=== PATIENT | female | born 1930 | race Caucasian/White ===

== ENCOUNTER → 2017-03-21 | Outpatient (CLI) | payer OTHER ==
[~2017-03-21] VITALS: Ht 147.3 cm; Wt 37.2 kg
[~2017-03-21] MED LIST: ARMOUR THYROID60 M1 PO; ASPIR 8181 MG PO; CENTRUM SILVER1 EAC4 PO; LANOXIN 0.120.125 M1 PO; MIRALAX17 GM PO; REMERON15 MG PO; SENNA8.6 MG PO; TYLENOL325 MG PO; ZOLOFT25 MG PO
== END | disposition home or self-care (01) ==
LOC: GI 06:46
DX: K31.89 Other diseases of stomach and duodenum (principal); K44.9 Diaphragmatic hernia without obstruction or gangrene; I10 Essential (primary) hypertension; I25.2 Old myocardial infarction; G47.33 Obstructive sleep apnea (adult) (pediatric); G30.9 Alzheimer's disease, unspecified; F02.80 Dementia in other diseases classified elsewhere, unspecified severity, without behavioral disturbance, psychotic disturbance, mood disturbance, and anxiety; Z98.41 Cataract extraction status, right eye; Z87.891 Personal history of nicotine dependence; Z98.42 Cataract extraction status, left eye; Z86.73 Personal history of transient ischemic attack (TIA), and cerebral infarction without residual deficits; Z88.0 Allergy status to penicillin; Z88.2 Allergy status to sulfonamides; Z88.8 Allergy status to other drugs, medicaments and biological substances; Z79.82 Long term (current) use of aspirin; Z79.899 Other long term (current) drug therapy
CPT/HCPCS: 62110; 62900